=== PATIENT | male | born 1955 | race Caucasian/White ===

== ENCOUNTER 2018-07-03 18:21 | Emergency (ER) | payer OTHER ==
[~2018-07-03] VITALS: Ht 167.6 cm; Wt 70.3 kg
[2018-07-03] MEDS ORDERED: SYNTHROID75 MCG (19:03)
== END 2018-07-04 08:10 | disposition home or self-care (01) ==
LOC: ER 18:21
DX: K57.92 Diverticulitis of intestine, part unspecified, without perforation or abscess without bleeding (principal)

== ENCOUNTER 2021-07-24 07:31 | Day surgery (SDC) | payer OTHER ==
[~2021-07-24 07:31] MED LIST: SYNTHROID75 MCG
== END 2021-07-24 12:50 | disposition home or self-care (01) ==
LOC: AMB-ENDOS 07:31
PROVIDERS: ATTEND Surgery
DX: K62.89 Other specified diseases of anus and rectum (principal); K64.4 Residual hemorrhoidal skin tags; Z20.822 Contact with and (suspected) exposure to COVID-19